=== PATIENT | male | born 1935 | race Caucasian/White ===

== ENCOUNTER 2017-05-20 17:54 | Emergency (ER) | payer MEDICARE, BC ==
[2017-05-20] MEDS ORDERED: Sodium Chloride 0.9% 10 ML Syringe FLUSH PRN (18:08)
[2017-05-20] MEDS ORDERED: HYDROmorphone 0.5 MG/0.5 ML Syringe IVPUSH ONE (18:12)
--- NOTE | 2017-05-20 18:58 | EDM.PDOC ---
ED HPI GENERAL MEDICAL PROBLEM - General Chief Complaint: Back Pain or Injury Stated Complaint: EN AMBULANCE Time Seen by Provider: 05/20/17 17:55 Source of Information: Reports: Patient History Limitations: Reports: No Limitations - History of Present Illness INITIAL COMMENTS - FREE TEXT/NARRATIVE: 81-year-old male presents via [facility] for evaluation and treatment of injuries to the back. Unclear exactly what happened. Patient was reportedly cutting trees. Sound like a bucket with a pipe was above him and this fell. He is currently complaining of severe pain to the back and neck. He has a laceration to his posterior scalp. EMS was unable to place him in a c- collar as this caused breathing difficulties. He arrives on 2 L nasal cannula. set staff fitter did not immediately apply oxygen and sats were in the upper 80s. Not normally on oxygen. Current complaints include neck pain and back pain. Denies any loss of consciousness. Denies any vision changes, nausea or vomiting. Reports deep inspiration causes significant back pain. He states that he has abdominal pain that radiates into his back. Unclear if EMS gave him any pain medications prior to arrival. Patient is not on any blood thinners. Onset: Today Location: Reports: Neck, Back Right Upper Back Pain Score (Numeric/FACES): 8 - Related Data Allergies Allergy/AdvReac Type Severity Reaction Status Date / Time No Known Allergies Allergy Verified 05/20/17 18:02 Home Meds: Home Meds Albuterol Sulfate [Proair Hfa] 1 puff IH ASDIRECTED PRN 05/20/17 [History] Dutasteride [Avodart] 0.5 mg PO DAILY 05/20/17 [History] Tamsulosin HCl [Flomax] 0.4 mg PO DAILY 05/20/17 [History] Theophylline [Theophylline Anhydrous] 600 mg PO BID 05/20/17 [History] Past Medical History Respiratory History: Reports: Asthma, Pneumonia, Recurrent Genitourinary History: Reports: Prostate Disorder, Renal Calculus, UTI, Recurrent Musculoskeletal History: Reports: Back Pain, Chronic, Fracture, Osteoporosis Other Musculoskeletal History: compression fx's, hip fx - Past Surgical History GI Surgical History: Reports: Colonoscopy Social & Family History - Tobacco Use Smoking Status *Q: Never Smoker Second Hand Smoke Exposure: No - Caffeine Use Caffeine Use: Reports: None - Recreational Drug Use Recreational Drug Use: No ED ROS GENERAL - Review of Systems Review Of Systems: See Below HEENT: Denies: Dental Pain, Nosebleed, Vision Change Respiratory: Reports: Shortness of Breath, Pleuritic Chest Pain Cardiovascular: Reports: Other. Denies: Syncope GI/Abdominal: Denies: Abdominal Pain Musculoskeletal: Reports: Neck Pain, Shoulder Pain (right), Back Pain (entire back) Skin: Reports: Wound (right posterior shoulder abrasion; laceration to the occipital scalp) Neurological: Denies: Syncope ED EXAM, UPPER BACK/NECK PAIN - Physical Exam Exam: See Below Exam Limited By: No Limitations General Appearance: Alert, WD/WN, Moderate Distress Eye Exam: Bilateral Eye: EOMI, Normal Inspection, PERRL Ears Exam: Normal External Exam Nose Exam: Normal Inspection Throat/Mouth Exam: Normal Inspection, Normal Voice, No Airway Compromise Neck Exam: Limited Range of Motion, Spinous Processes Tender Nexus Criteria: Posterior, Midline Cervical Tenderness Cardiovascular/Respiratory: Regular Rate, Rhythm, No M/R/G, Other (2+ dorsalis pedis and posterior tibialis pulses bilaterally ) GI/Abdominal: Normal Bowel Sounds, Soft, Non-Tender (no tenderness to the abomen with palpation but referral pain to the right scapula) Back Exam: Paraspinal Tenderness, Vertebral Tenderness (cervical, thoracic and lumbar spine) Extremities: Normal Inspection Neurologic: Alert, Normal Mood/Affect Psychiatric: Normal Affect, Normal Mood Skin Exam: Normal Color, Warm/Dry, Other (laceraion to the occipital scalp, no active bleeding 0.5cm in length; abrasion to the right posterior scapula) EKG INTERPRETATION EKG Date: 05/20/17 Time: 20:20 Rhythm: NSR Rate (Beats/Min): 94 [place]: Normal P-Wave: Present QRS: Normal ST-T: Normal QT: Prolonged EKG Interpretation Comments: NSR at 94 bpm. No ischemia. Poor 'R' progression. Prolonged QT interval . Course - Vital Signs Last Recorded V/S: Last Vital Signs Temp 36.6 C 05/20/17 17:54 Pulse 60 05/20/17 17:54 Resp 20 05/20/17 17:54 BP 103/63 05/20/17 17:54 Pulse Ox 84 L 05/20/17 17:54 - Orders/Labs/Meds Orders: Active Orders 24 hr Category Date Time Status Cardiac Monitoring [RC] . DIRECTED Care 05/20/17 19:58 Active EKG 12 Lead [EKG Documentation Completion] [RC] STAT Care 05/20/17 20:17 Active Peripheral IV Care [RC] . DIRECTED Care 05/20/17 18:11 Active Cervical Spine wo Cont [CT] Stat Exams 05/20/17 18:08 Taken Chest Abdomen Pelvis w Cont [CT] Stat Exams 05/20/17 18:08 Taken Head wo Cont [CT] Stat Exams 05/20/17 18:08 Taken Lumbar Spine wo Cont [CT] Stat Exams 05/20/17 18:12 Taken Thoracic Spine wo Cont [CT] Stat Exams 05/20/17 18:08 Taken Peripheral IV Insertion Adult [OM.PC] Routine Oth 05/20/17 18:08 Ordered Labs: Laboratory Tests 05/20/17 05/20/17 05/20/17 Range/Units 18:25 18:25 18:25 WBC 16.95 H (4.23-9.07) K/mm3 RBC 4.51 L (4.63-6.08) M/mm3 Hgb 13.2 L (13.7-17.5) gm/L Hct 39.7 L (40.1-51.0) % MCV 88.0 (79.0-92.2) fl MCH 29.3 (25.7-32.2) pg MCHC 33.2 (32.2-35.5) g/dl RDW Std Deviation 46.4 H (35.1-43.9) fL Plt Count 225 (163-337) K/mm3 MPV 10.2 (9.4-12.3) fl Neut % (Auto) 85.2 H (34.0-67.9) % Lymph % (Auto) 5.7 L (21.8-53.1) % Caroline % (Auto) 8.1 (5.3-12.2) % Eos % (Auto) 0.2 L (0.8-7.0) Baso % (Auto) 0.2 (0.1-1.2) % Neut # (Auto) 14.44 H (1.78-5.38) K/mm3 Lymph # (Auto) 0.96 L (1.32-3.57) K/mm3 Caroline # (Auto) 1.38 H (0.30-0.82) K/mm3 Eos # (Auto) 0.03 L (0.04-0.54) K/mm3 Baso # (Auto) 0.04 (0.01-0.08) K/mm3 Manual Slide Review Normal smear PT 11.1 (8.0-13.0) SECONDS INR 1.02 APTT 21 L (22-36) SECONDS Sodium 143 (136-145) mEq/L Potassium 4.0 (3.5-5.1) mEq/L Chloride 105 (98-107) mEq/L Carbon Dioxide 31 (21-32) mEq/L Anion Gap 11.0 (5-15) BUN 21 H (7-18) mg/dL Creatinine 1.1 (0.7-1.3) mg/dL Est Cr Clr Drug Dosing 42.05 mL/min Estimated GFR (MDRD) > 60 (>60) mL/min BUN/Creatinine Ratio 19.1 H (14-18) Glucose 206 H (83-115) mg/dL Calcium 10.1 (8.5-10.1) mg/dL Total Bilirubin 0.5 (0.2-1.0) mg/dL AST 34 (15-37) U/L ALT 30 (16-63) U/L Alkaline Phosphatase 86 (46-116) U/L Total Protein 6.9 (6.4-8.2) g/dl Albumin 3.5 (3.4-5.0) g/dl Globulin 3.4 gm/dL Albumin/Globulin Ratio 1.0 (1-2) Lipase 126 (73-393) U/L Urine Color (Yellow) Urine Appearance (Clear) Urine pH (5.0-8.0) Ur Specific [place] (1.005-1.030) Urine Protein (Negative) Urine Glucose (UA) (Negative) Urine Ketones (Negative) Urine Occult Blood (Negative) Urine Nitrite (Negative) Urine Bilirubin (Negative) Urine Urobilinogen (0.2-1.0) Ur Leukocyte Esterase (Negative) Urine RBC (0-5) /hpf Urine WBC (0-5) /hpf Ur Epithelial Cells (0-5) /hpf Urine Bacteria (FEW) /hpf Urine Mucus (FEW) /hpf 05/20/ Range/Units 20:35 WBC (4.23-9.07) K/mm3 RBC (4.63-6.08) M/mm3 Hgb (13.7-17.5) gm/L Hct (40.1-51.0) % MCV (79.0-92.2) fl MCH (25.7-32.2) pg MCHC (32.2-35.5) g/dl RDW Std Deviation (35.1-43.9) fL Plt Count (163-337) K/mm3 MPV (9.4-12.3) fl Neut % (Auto) (34.0-67.9) % Lymph % (Auto) (21.8-53.1) % Caroline % (Auto) (5.3-12.2) % Eos % (Auto) (0.8-7.0) Baso % (Auto) (0.1-1.2) % Neut # (Auto) (1.78-5.38) K/mm3 Lymph # (Auto) (1.32-3.57) K/mm3 [place] # (Auto) (0.30-0.82) K/mm3 Eos # (Auto) (0.04-0.54) K/mm3 Baso # (Auto) (0.01-0.08) K/mm3 Manual Slide Review PT (8.0-13.0) SECONDS INR APTT (22-36) SECONDS Sodium (136-145) mEq/L Potassium (3.5-5.1) mEq/L Chloride (98-107) mEq/L Carbon Dioxide (21-32) mEq/L Anion Gap (5-15) BUN (7-18) mg/dL Creatinine (0.7-1.3) mg/dL Est Cr Clr Drug Dosing mL/min Estimated GFR (MDRD) (>60) mL/min BUN/Creatinine Ratio (14-18) Glucose (83-115) mg/dL Calcium (8.5-10.1) mg/dL Total Bilirubin (0.2-1.0) mg/dL AST (15-37) U/L ALT (16-63) U/L Alkaline Phosphatase (46-116) U/L Total Protein (6.4-8.2) g/dl Albumin (3.4-5.0) g/dl Globulin gm/dL Albumin/Globulin Ratio (1-2) Lipase (73-393) U/L Urine Color Yellow (Yellow) Urine Appearance Slt cloudy H (Clear) Urine pH 8.0 (5.0-8.0) Ur Specific [place] 1.015 (1.005-1.030) Urine Protein 1+ H (Negative) Urine Glucose (UA) Negative (Negative) Urine Ketones Negative (Negative) Urine Occult Blood 2+ H (Negative) Urine Nitrite Negative (Negative) Urine Bilirubin Negative (Negative) Urine Urobilinogen 0.2 (0.2-1.0) Ur Leukocyte Esterase 2+ H (Negative) Urine RBC 5-10 H (0-5) /hpf Urine WBC 30-40 H (0-5) /hpf Ur Epithelial Cells 0-5 (0-5) /hpf Urine Bacteria Moderate H (FEW) /hpf Urine Mucus Few (FEW) /hpf Meds: Medications Discontinued Medications Generic Name Dose Route Start Last Admin Trade Name Freq PRN Reason Stop Dose Admin Hydromorphone HCl 0.25 mg 05/20/17 18:12 05/20/17 18:30 Dilaudid IVPUSH 05/20/17 18:13 0.25 mg ONETIME ONE Administration Hydromorphone HCl 0.25 mg 05/20/17 19:58 05/20/17 20:06 Dilaudid IVPUSH 05/20/17 19:59 0.25 mg ONETIME ONE Administration Sodium Chloride 10 ml 05/20/17 18:08 05/20/17 18:25 Saline Flush FLUSH 10 ml ASDIRECTED PRN Administration Keep Vein Open - Radiology Interpretation Free Text/Narrative:: CT of the head without contrast impression per [facility]: No acute fingings. CT of the cervical spine without contrast impression per [facility]: right C5 spinous process fracture. Comminuted right scapular fracture. Right third and fourth rib fractures. There is limited assessment of the lung apices. Pneumothorax is not excluded. Given the extent of the visualized fractures, CT of the chest is advised further evaluation. CT of the thoracic spine without contrast impression per [facility]: Multiple likely chronic insufficiency fractures throughout the midthoracic spine. No central canal stenosis. No posterior bony retropulsion. There may be several associated right sided thoracic spine transverse process fractures. No significant paraspinal hematoma. CT of the lumbar spine without contrast impression per [facility]: Moderate L1 compression fracture deformity likely remote. No central canal stenosis. CT of the chest with IV contrast impression per [facility]: Multiple right rib fractures as detailed. No pneumothorax. No significant hemothorax. There is dependent subsegmental atelectasis in the right lung. Unremarkable mediastinum. No CT evidence of solid abdominal organ injury. Moderate right hydronephrosis secondary to a prominent right renal calculus measuring almost 3 cm. Additional extensive bilateral nonobstructive nephrolithiasis. Markedly enlarged prostate. Tiny non-obstructive right inguinal hernia. Right hepatic hemangioma. Multiple age indeterminate compression fracture deformities throughout the thoracic spine as well as the L1 veterbral body. No significant bony retropulsion. CT of the abdomen and pevlis with IV contrast impression per [facility]: Multiple right rib fractures as detailed. No pneumothorax. No significant hemothorax. There is dependent segmental atelectasis in the right lung. Unremarkable mediastinum. No CT evidence of solid organ abnormality. Moderate right hydronephrosis secondary to a prominent right renal pelvis calculus measuring almost up to 3 cm. Additional extensive bilateral nonobstructing nephrolithiasis. Markedly enlarged prostate. Right hepatic hemangioma. Tiny nonobstructive right inguinal hernia. Multiple age-indeterminate compression fracture deformities throughout the thoracic spine as well as the L1 vertebral body. No significant bony retropulsion. - Re-Assessments/Exams Free Text/Narrative Re-Assessment/Exam: 05/20/17 20:47 Trauma alert was called upon arrival the patient to the ER. Dr. Gutiérrez has seen and evaluated the patient as this was a trauma alert. He agrees with the workup. Patient was removed from the backboard upon arrival to the ER. Patient was unable to be C-collared. EMS attempted to this but this worsened his breathing. The patient's CT results and labs returned. Unfortunately, at this time were on diversion. He requires hospitalization. The patient is quite upset by this. He would like to stay in [place]. Informed several times that this is not at all possible as we are on diversion and I cannot keep him at this hospital. He reports significant discomfort with movement and refuses to go by ground ambulance due to the discomfort he had on the way to the ER. We will send him by helicopter to [facility] in [place]. I called one call and Dr. Castro, ER physicians accepted the patient at [place]. Dr. Delgado, surgeon integration lead has also been informed of this patient. Plan will be to send the patient by helicopter to [facility] in [place]. Dr. Castro accepting. Departure - Departure Time of Disposition: 20:45 Disposition: DC/Tfer to Acute Hospital 02 Condition: Serious Clinical Impression: Scapula fracture, Multiple rib fractures involving four or more ribs - Discharge Information Referrals: Blake Suarez MD [Primary Care Provider] - Forms: ED Department Discharge Additional Instructions: Patient will go by helicopter to [facility] in [place]. Dr. Castro is accepting. - My Orders Last 24 Hours: My Active Orders 05/20/17 18:08 Cervical Spine wo Cont [CT] Stat Chest Abdomen Pelvis w Cont [CT] Stat Head wo Cont [CT] Stat Thoracic Spine wo Cont [CT] Stat Peripheral IV Insertion Adult [OM.PC] Routine 05/20/17 18:11 Peripheral IV Care [RC] . DIRECTED 05/20/17 18:12 Lumbar Spine wo Cont [CT] Stat 05/20/17 19:58 Cardiac Monitoring [RC] . DIRECTED 05/20/17 20:17 EKG 12 Lead [EKG Documentation Completion] [RC] STAT - Assessment/Plan Last 24 Hours: My Active Orders 05/20/17 18:08 Cervical Spine wo Cont [CT] Stat Chest Abdomen Pelvis w Cont [CT] Stat Head wo Cont [CT] Stat Thoracic Spine wo Cont [CT] Stat Peripheral IV Insertion Adult [OM.PC] Routine 05/20/17 18:11 Peripheral IV Care [RC] . DIRECTED 05/20/17 18:12 Lumbar Spine wo Cont [CT] Stat 05/20/17 19:58 Cardiac Monitoring [RC] . DIRECTED 05/20/17 20:17 EKG 12 Lead [EKG Documentation Completion] [RC] STAT
[2017-05-20] MEDS ORDERED: HYDROmorphone 1 MG/ML Syringe IVPUSH ONE (19:58)
--- NOTE | 2017-05-21 11:49 | CT ---
CT cervical spine Technique: Multiple axial sections were obtained from above C1 inferiorly through the inferior and posterior T3 level. Reconstructed sagittal and coronal images were reviewed. Comparison: No prior cervical spine imaging. Findings: Mastoid sinuses and middle ear cavities are clear. Posterior skull base is intact. Fractures are seen within the right third and fourth ribs. Adjacent parenchymal density is seen most likely due to atelectasis or pulmonary contusions. Fracture identified at the base of the process of C5. Fracture does not extend into the other portions of this vertebral body. Fracture partially visualized within the right side of the scapula. No additional fracture is seen within the cervical spine. Degenerative change scattered throughout the apophyseal joints. Vertebral body heights and disc spaces are maintained. Minimal posterior osteophytes are seen at C5-6. Slight degenerative change within the uncovertebral joints noted at C5-6. No additional abnormality is seen. Impression: 1. Spinous process fracture of C5. 2. Right-sided scapular fracture. 3. Fractures within the right third and fourth ribs. 4. Osteopenia and scattered degenerative change. Diagnostic code #3 I agree with preliminary report issued by [facility] ([facility] report finalized on 05/20/17, 8:18 PM Central Time)
--- NOTE | 2017-05-21 14:35 | CT ---
Head CT Technique: Multiple axial sections through the brain were obtained. Intravenous contrast was not utilized. Comparison: No previous intracranial imaging. Findings: Ventricles along with basal cisterns and sulci over the convexities are mildly prominent. Minimal diminished density noted within the periventricular white matter compatible with small vessel ischemic demyelination change. No other abnormal parenchymal densities are seen. No evidence of intracranial hemorrhage. No midline shift or mass effect is seen. Mild atherosclerotic change seen within the carotid siphon. Bone window settings were reviewed. No acute calvarial abnormality is seen. Incidental retention cyst and mucosal thickening seen within the left maxillary sinus which appears chronic. Impression: 1. Mild senescent change as described above. Incidental sinus finding. 2. No acute intracranial abnormality is identified. Diagnostic code #2 I agree with preliminary report issued by [facility] ([facility] report finalized on 05/20/17, 8:12 PM Central Time)
--- NOTE | 2017-05-21 14:35 | CT ---
CT thoracic spine Technique: Multiple axial sections through the thoracic spine were obtained. Reconstructed sagittal and coronal images were reviewed. Comparison: No older thoracic spine exam is available. Findings: Endplate concavities and compression deformities noted of T1-T11. Compression deformities most severe at T5 and T6. On the axial views I do not see any definite acute fracture line although acute compression deformities can sometimes not be well seen on the axial plane. Kyphosis is present. No abnormal subluxation is seen. No central canal stenosis is noted. No discrete neural foraminal stenosis is seen on the reconstructed sagittal images. Multiple right-sided rib fractures again seen. Impression: 1. Numerous endplate concavities as well as compression deformities throughout the thoracic spine. No definite acute fracture line is seen but acute compression deformities can sometimes not be well seen on axial views. If further evaluation for acute compression deformity is needed, MRI would be helpful. 2. Kyphosis. Diagnostic code #3 I agree with preliminary report issued by [facility] ([facility] report finalized on 05/20/17, 9:13 PM Central Time)
--- NOTE | 2017-05-21 14:35 | CT ---
CT chest Technique: Multiple axial sections through the chest were obtained. Intravenous contrast was utilized. Comparison: No prior chest CT or chest imaging. Findings: Fractures noted of the right third, fourth, fifth and seventh ribs. Comminuted right scapular fracture is seen. Fracture involves the wing of the scapula. Reconstructed sagittal images show numerous compression deformities within the mid and lower thoracic spine. These are age indeterminate. MRI would be needed to further grade if clinically needed. Mild atelectasis noted within both lung bases worse on the right side. No pneumothorax is seen. Slight scarring noted within the right upper lung. Small right-sided pleural effusion is seen. Mediastinum and hilar regions show no adenopathy or mass. Moderately severe coronary artery calcification is seen. No pericardial thickening is seen. No axillary adenopathy is identified. Impression: 1. Numerous right-sided rib fractures. Small right-sided pleural effusion with mild bibasilar atelectasis. 2. Slightly comminuted fracture within the wing of the right scapula. 3. Multiple compression deformities within the spine, age indeterminate and MRI would be needed to further age these findings if clinically indicated. 4. No other acute abnormality is seen. Diagnostic code #3 I agree with preliminary report issued by [facility] ([facility] report finalized on 05/20/17, 8:35 PM Central Time) CT abdomen and pelvis Technique: Multiple axial sections were obtained from above the dome of the diaphragm inferiorly through the pubic symphysis. Intravenous contrast was utilized. No oral contrast has been given. Delayed images were also obtained through the kidneys. Comparison: No prior abdominal imaging. Findings: Low density lesion identified within the posterior right lobe of the liver which measures about 3.5 cm in size. There is some peripheral enhancement being seen with delayed images showing increasing peripheral enhancement. This finding is most likely due to a hemangioma. No additional abnormality is seen within the liver. Spleen appears normal. Right-sided hydronephrosis is seen due to large partially obstructing calculus at the UPJ measuring 2.2 cm. Delayed images shows contrast to extend past this stone into more distal parts of the ureter. Other nonobstructing calculi are seen within both kidneys. Adrenal glands show no nodule. Pancreas appears within normal limits. Aorta and iliac vessels show atherosclerotic calcification without aneurysm. Gallbladder contains no calcified gallstones. No retroperitoneal adenopathy or mesenteric abnormalities are seen. Prostate gland mildly enlarged and contains calcifications. Bone window settings show degenerative change within the spine. Mild endplate concavities are seen within L3 with moderate compression deformity of L1. Age of these are indeterminate. Impression: 1. Partially obstructing stone measuring 2.2 cm within the right renal pelvis causing partial obstruction at the UPJ. Delayed images show contrast to extend around this calcification into the right ureter. Multiple small nonobstructing calculi seen within both kidneys. 2. Compression deformities within the spine, age of which are indeterminate. 3. Other incidental findings. Nothing acute is seen on CT study of the abdomen and pelvis. Diagnostic code #3
--- NOTE | 2017-05-21 14:35 | CT ---
CT lumbar spine Technique: Multiple axial sections were obtained through the lumbar spine. Reconstructed sagittal and coronal images were obtained. Comparison: No prior lumbar spine imaging. Findings: Moderately severe compression deformity noted of L1. Disc space narrowing noted at T12-L1. Endplate concavities noted of L3. Degenerative apophyseal change is seen most severe at L5-S1. No abnormal subluxation is seen. No acute fracture line is seen. Impression: 1. Moderate compression deformity of L1 most likely old. Endplate concavities of L3 which is likely old. 2. Osteopenia and mild degenerative change. Diagnostic code #2 I agree with preliminary report issued by [facility] ([facility] report finalized on 05/20/17, 9:13 PM Central Time)
== END 2017-05-20 20:54 ==
LOC: SUPCPDRO 17:54 → JD.ED 17:54
DX: S22.41XA Multiple fractures of ribs, right side, initial encounter for closed fracture (principal); S42.101A Fracture of unspecified part of scapula, right shoulder, initial encounter for closed fracture; S01.01XA Laceration without foreign body of scalp, initial encounter; W20.8XXA Other cause of strike by thrown, projected or falling object, initial encounter; J45.909 Unspecified asthma, uncomplicated; Z87.01 Personal history of pneumonia (recurrent); Z79.899 Other long term (current) drug therapy; Z87.440 Personal history of urinary (tract) infections
CPT/HCPCS: 36415; 70450; 71260; 72125; 72128; 72131; 74177; 80053; 81001; 83690; 85025; 85610; 85730; 93005; 96374; 96375; 99284; J1170; J7050; 93010; 99285